=== PATIENT | male | born 1950 ===

== ENCOUNTER 2018-05-13 12:56 | Emergency (ER) | payer SELFPAY ==
[~2018-05-13] VITALS: Ht 190.5 cm; Wt 91.3 kg
[2018-05-13 13:14] VITALS: BP 146/79
== END 2018-05-13 13:33 | disposition home or self-care (01) ==
LOC: ED 13:27
DX: L03.221 Cellulitis of neck (principal); B86 Scabies
CPT/HCPCS: 99283